=== PATIENT | female | born 1990 | race Asian ===

== ENCOUNTER 2023-11-15 16:27 | Emergency (ER) | payer OTHER ==
[~2023-11-15] VITALS: Ht 160 cm; Wt 63.6 kg
[2023-11-15] MEDS ORDERED: NS 1,000 ML IV ONE (16:45)
[2023-11-15 16:47] LABS: BASO # 0.1 K/mm3 (0.0-0.2); BASO % 0.9 % (0.0-2.0); EOS % 0.2 % (0.0-4.0); GRAN # 7.8 K/mm3 (1.4-6.5); GRAN % 68.3 % (42.2-75.2); HEMATOCRIT 45.1 % (37.0-47.0); HEMOGLOBIN 14.4 g/dl (12.5-16.0); LYMPH # 2.7 K/mm3 (1.2-3.4); LYMPH % 23.7 % (20.0-51.0); MEAN CELL VOLUME 83 fl (80.0-100.0); MEAN CORPUSCULAR HEMOGLOBIN 26 pg (27-31); MEAN CORPUSCULAR HGB CONC 32 g/dl (33.0-37.0); MEAN PLATELET VOLUME 10.5 fl (7.4-10.4); MONO # 0.8 K/mm3 (0.1-0.6); MONO % 6.6 % (1.7-9.3); PLATELET COUNT 371 K/mm3 (130-400); RED BLOOD COUNT 5.46 M/mm3 (4.10-5.30); REDCELL DISTRIBUTION WIDTH-CV 13.4 % (11.5-14.5)
[2023-11-15 17:04] LABS: ALANINE AMINOTRANSFERASE 31 U/L (0-55); ALBUMIN 4.3 g/dL (3.5-5.0); ALKALINE PHOSPHATASE 129 U/L (40-150); ANION GAP 16 mmol/L (7-16); AST,SGOT 30 U/L (5-34); BILIRUBIN,TOTAL 0.7 mg/dL (0.2-1.2); BLOOD UREA NITROGEN 17 mg/dL (7-19); CALCIUM 10.3 mg/dL (8.4-10.2); CHLORIDE 107 mEq/L (98-107); CREATININE, serum 0.88 mg/dL (0.57-1.11); GLUCOSE 118 mg/dL (70-99); POTASSIUM 3.6 mEq/L (3.5-4.5); SODIUM 141 mEq/L (136-145); TOTAL PROTEIN 7.6 g/dl (6.2-8.1)
[2023-11-15 17:05] LABS: ALCOHOL(ethanol),MEDICAL < 10 mg/dL (0-10); SALICYLATE < 5.0 mg/dL (15.0-30.0)
[2023-11-15] MEDS ORDERED: Ziprasidone 10 MG,Water For Injection,Sterile 0.5 ML IM ONE (18:30)
[2023-11-15] MEDS ORDERED: diphenhydrAMINE 50 MG/ML 1 ML VIAL IM ONE (18:30)
[2023-11-15] MEDS ORDERED: Haloperidol Lactate 5 MG/ML VIAL IV ONE ×2 (19:00→19:15)
[2023-11-15] MEDS ORDERED: diphenhydrAMINE 50 MG/ML 1 ML VIAL IV ONE (19:00)
--- NOTE | 2023-11-16 15:03 | NUR ---
Patient is not verbally responsive and patient's sister was removed with no trespassing orders due to aggressive behavior. Patient is from [place] and only speaks Faroese. 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 Patient was due to present her dissertation on 11/15/23 and graduate this summer. Patient had postponed her dissertation until last week. Worker, utilizing automotive shop foreman, was able to contact and old friend that lived with her (Ernestine Alvazatabitha [phone]), from [place] at [facility]. Ernestine attempted to talk with patient, however, patient would not move, open eyes nor speak to Ernestine. Worker was connected with Neva Larson from [facility] that has a relationship with her. Neva is now with patient at bedside. Neva states that patient has had mental health issues before and she has witness aggressive behavior previously. Neva states that patient's mental health deteriorated and she had increased paranoia since her sister moved in with her about 1 year ago. Neva states that patient has become distant from her as well. Worker provided [facility] the above information. Shady will rescreen if patient starts talking or doesn't have any water intake for 2 days. Tavon states that patient does have parents in [place], however, it is not safe for them to call and speak to the patient and that the patient has not talked to then in about 7 years. Worker collaborated with nursing and ED provider regarding the above information.
[2023-11-17 01:45] VITALS: BP 121/80; PULSE 102; TEMP 98.3
== END 2023-11-17 02:20 | disposition home or self-care (01) ==
LOC: EDBD 16:27 → COL.ER 16:27
PROVIDERS: Family Medicine
DX: F23 Brief psychotic disorder (principal)
CPT/HCPCS: J1200; J1630; J7030